=== PATIENT | male | born 1975 | race Caucasian/White ===

== ENCOUNTER 2025-05-31 08:55 | Emergency (ER) | payer BC ==
[2025-05-31 09:00] VITALS: BP 159/103; PULSE 112; RESP 18; TEMP 98
--- NOTE | 2025-05-31 09:20 | ED ---
Wound/Laceration HPI - General Chief Complaint: Wound/Laceration Stated Complaint: Right thumb laceration Time Seen by Provider: 05/31/25 09:20 Source: patient, family, RN notes reviewed Mode of arrival: ambulatory Limitations: no limitations - History of Present Illness Initial Comments: 50-year-old male presented to ER for evaluation of right thumb injury. Patient reports he was in his yard cutting brush with a chainsaw when the chainsaw accidentally kicked back and cut his right thumb. Patient reports that he distal amputation to right thumb. He does not know where distal end is. Patient denies any paresthesias or pain. Denies any limited range of motion. Tetanus status unknown. No other injuries or complaints. - Related Data Previous Rx's Medication Instructions Recorded Cephalexin [Keflex] 500 mg PO Q6HR #40 cap 05/31/25 Allergies Allergy/AdvReac Type Severity Reaction Status Date / Time iodine Allergy Rash/Hives Verified 05/31/25 09:00 Review of Systems ROS Statement: Those systems with pertinent positive or pertinent negative responses have been documented in the HPI. ROS Other: All systems not noted in ROS Statement are negative. Past Medical History Past Medical History: No Reported History History of Any Multi-Drug Resistant Organisms: None Reported Past Surgical History: No Surgical Hx Reported Past Psychological History: No Psychological Hx Reported Past Alcohol Use History: Occasional Past Drug Use History: None Reported General Exam Limitations: no limitations General appearance: alert, in no apparent distress Respiratory exam: Present: normal lung sounds bilaterally. Absent: respiratory distress, wheezes, rales, rhonchi, stridor Cardiovascular Exam: Present: regular rate, normal rhythm, normal heart sounds. Absent: systolic murmur, diastolic murmur, rubs, gallop, clicks Extremities exam: Present: normal capillary refill (2+ right radial pulse), other (Complete amputation of right thumb distal to PIP joint. No active bleeding.) Neurological exam: Present: alert, oriented X3, CN II-XII intact Skin exam: Present: warm, dry, intact, normal color. Absent: rash Course Vital Signs 05/31/25 08:58 Temperature 98.0 F Pulse Rate 112 H Respiratory 18 Rate Blood Pressure 159/103 O2 Sat by Pulse 97 Oximetry - Reevaluation(s) Reevaluation #1: 05/31/25 10:30 Case discussed with on-call orthopedics, Dr. Mandel. He spoke with hand surgery, Dr. Nelson. He advised to wrap thumb with nonadherent dressing and gauze. Outpatient follow-up with Dr. Nelson in office on Monday. Discharged on anti biotics Medical Decision Making - Medical Decision Making Was pt. sent in by a medical professional or institution (, [employer], COMPANY SECRETARY, urgent care, hospital, or detention...) When possible be specific @ -No Did you speak to anyone other than the patient for history (EMS, parent, family, police, friend...)? What history was obtained from this source @ -Significant other, bedside, aiding in HPI past medical history Did you review nursing and triage notes (agree or disagree)? Why? @ -I reviewed and agree with nursing and triage notes Were old charts reviewed (outside hosp., previous admission, EMS record, old EKG, old radiological studies, urgent care reports/EKG's, detention records)? Report findings @ -No old charts were reviewed Differential Diagnosis (chest pain, altered mental status, abdominal pain women, abdominal pain men, vaginal bleeding, weakness, fever, dyspnea, syncope, headache, dizziness, GI bleed, back pain, seizure, CVA, palpatations, mental health, musculoskeletal)? @ -Laceration, abrasion, contusion, avulsion, foreign body this list is not meant to be all-inclusive EKG interpreted by me (3pts min.). @ -None done X-rays interpreted by me (1pt min.). @ -Right hand x-ray interpreted me remarkable for amputation to distal end of right thumb. CT interpreted by me (1pt min.). @ -None done U/S interpreted by me (1pt. min.). @ -None done What testing was considered but not performed or refused? (CT, X-rays, U/S, labs)? Why? @ -None What meds were considered but not given or refused? Why? @ -None Did you discuss the management of the patient with other professionals (professionals i.e. [employer] Tong, COMPANY SECRETARY, lab, RT, psych nurse, social services technician, chief librarian branch or department, teacher, flight communications officer, employment evaluator/case manager)? Give summary @ -Case discussed with on-call orthopedics, Dr. Mandel who spoke with Dr. Nelson, hand marine habitat resource specialist. He advised nonadherent dressing and close follow-up outpatient on Monday with Dr. Nelson. Outpatient antibiotics. Was smoking cessation discussed for >3mins.? @ -No Was critical care preformed (if so, how long)? @ -No Were there social determinants of health that impacted care today? How? (Homelessness, low income, unemployed, alcoholism, drug addiction, transportation, low edu. Level, literacy, decrease access to med. care, fpc, rehab)? @ -No Was there de-escalation of care discussed even if they declined (Discuss DNR or withdrawal of care, Hospice)? DNR status @ -No What co-morbidities impacted this encounter? (DM, HTN, Smoking, COPD, CAD, Cancer, CVA, ARF, Chemo, Hep., AIDS, mental health diagnosis, sleep apnea, morbid obesity)? @ -None Was patient admitted / discharged? Hospital course, mention meds given and route, prescriptions, significant lab abnormalities, going to OR and other pertinent info. @ -Discharge. 50-year-old male presented the ER for evaluation of right thumb injury. Vital signs stable. Upon arrival patient tachycardic and mildly hyper tensive, 159/103. Vitals otherwise stable. This believed to be due to pain. Exam remarkable for distal amputation of right thumb distal to IP joint. No active bleeding. Bone exposed. Patient is neurovascularly intact. Right hand x-ray remarkable for amputation of the distal 50% of distal phalanx of the right thumb with small bone fragments and tiny radiopaque foreign body noted. Patient's tetanus updated and patient received 1 g IM Ancef. Findings discussed with on-call orthopedics, Dr. Mandel. He discussed case with hand marine habitat resource specialist, Dr. Nelson. He reports to dress wound with nonadherent dressing and gauze. Patient can be discharged home on oral antibiotics with close follow-up to Dr. Nelson on Monday. Patient educated on x-ray findings and orthopedic recommendations. Patient is agreeable. Patient provided with p.o. ibuprofen for pain control. Patient refused digital block. Wound irrigated with sterile water prior to dressing placed bacitracin and nonadherent dressing placed by RN. Patient discharged home on Keflex. Orthopedic contact information provided. Strict return parameters discussed. Patient discharged in stable condition. Patient verbally expressed understanding and agreement with care plan. Case discussed with ED attending, Dr. Castillo Undiagnosed new problem with uncertain prognosis? @ -No Drug Therapy requiring intensive monitoring for toxicity (Heparin, Nitro, Insulin, Cardizem)? @ -No Were any procedures done? @ -No Diagnosis/symptom? @ -Open fracture/distal thumb amputation Acute, or Chronic, or Acute on Chronic? @ -Acute Uncomplicated (without systemic symptoms) or Complicated (systemic symptoms)? @ -Uncomplicated Side effects of treatment? @ -No Exacerbation, Progression, or Severe Exacerbation? @ -No Poses a threat to life or bodily function? How? (Chest pain, [place], [place], pneumonia, PE, COPD, DKA, ARF, appy, cholecystitis, CVA, Diverticulitis, Homicidal, Suicidal, threat to staff... and all critical care pts) @ -Yes, open fractures can lead to systemic infections which can be life- threatening - Radiology Data Radiology results: report reviewed, image reviewed Disposition Clinical Impression: Open fracture, Amputation finger Disposition: HOME SELF-CARE Condition: Stable Instructions (If sedation given, give patient instructions): Finger Amputation (ED), Thumb Fracture (ED) Additional Instructions: Take Keflex as prescribed. Follow-up closely with hand surgery on Monday. You may take [id number] ibuprofen and Tylenol for pain control. Return to the ER for any new or worsening concerns Prescriptions: Cephalexin [Keflex] 500 mg PO Q6HR #40 cap Is patient prescribed a controlled substance at d/c from ED?: No Referrals: None,Stated [Primary Care Provider] - 1-2 days Nieves Nelson [Doctor of Osteopathic Medicine] - 1-2 days Time of Disposition: 10:44
[2025-05-31] MEDS: LIDOCAINE 1% INJ 10MG/ML (20 ML MDV) SQ ONE (09:43)
[2025-05-31] MEDS: IBUPROFEN 600 MG TAB PO STA (09:43)
[2025-05-31] MEDS: DIPH,PERTUS(ACELL)TETVAC-LF 0.5 ML VIAL IM ONE (09:44)
[2025-05-31] MEDS: ceFAZolin 1,000 MG VIAL (IM USE) IM STA (09:48)
--- NOTE | 2025-05-31 10:06 | XR ---
Right hand HISTORY: Amputation COMPARISON: None TECHNIQUE: 3 views of the left hand were obtained. FINDINGS: There is amputation of the distal 50% of the distal phalanx of the thumb.. There are multiple small b one fragments within the soft tissues at the amputation site within the mid distal phalanx. There are no radiopaque foreign is a tiny sliver-like radiopaque foreign body in the adjacent soft ti ssues in the radial aspect of the thumb at the level of the interphalangeal joint. The remaining osseous structures of the hand are intact. IMPRESSION: Amputation of the distal 50% of the distal phalanx of the right thumb with small bone fragments and a tiny radiopaque foreign body as described above. [facility], , 05/31/2025 10:04 AM
[2025-05-31] MEDS: BACITRACIN OINT 1 EACH PACKET TOPICAL ONE (11:06)
== END 2025-05-31 11:07 | disposition home or self-care (01) ==
LOC: EC 08:55
DX: S68.011A Complete traumatic metacarpophalangeal amputation of right thumb, initial encounter (principal); Z88.8 Allergy status to other drugs, medicaments and biological substances; Z23 Encounter for immunization; W29.3XXA Contact with powered garden and outdoor hand tools and machinery, initial encounter
CPT/HCPCS: 73130; 90715; 99283; 90471; 96372; J0690; J2003

== ENCOUNTER 2025-06-09 11:20 | Day surgery (SDC) | payer BC ==
[2025-06-09] MEDS ORDERED: LACTATED RINGERS 1,000 ML IV SCH (11:27)
[2025-06-09 11:54] VITALS: TEMP 98
[2025-06-09] MEDS: IV FLUID CONTINUATION 1,000 ML IV ONE (11:54)
[2025-06-09] MEDS: DEXAMETHASONE SOD PHOSPHATE 4 MG/ML 1 ML VIAL IV ONE (12:03)
[2025-06-09] MEDS: ONDANSETRON 4 MG/2 ML VIAL IVP ONE (12:03)
[2025-06-09] MEDS: BUPIVACAINE (PF) 0.25% 30 ML VIAL SQ ONE ×2 (12:51)
[2025-06-09] MEDS ORDERED: LIDOCAINE 1% INJ 10MG/ML (20 ML MDV) ONE (12:54)
[2025-06-09] MEDS ORDERED: PROPOFOL 10 MG/ML 20 ML VIAL IV ONE (12:54)
[2025-06-09] MEDS ORDERED: MIDAZOLAM 2 MG/2 ML VIAL ONE (12:54)
[2025-06-09] MEDS ORDERED: fentaNYL (PF) 50 MCG/ML 2 ML AMP ONE (12:54)
[2025-06-09] MEDS ORDERED: ePHEDrine 50 MG/ML 1 ML VIAL ONE (12:54)
[2025-06-09 15:11] VITALS: RESP 16
[2025-06-09] MEDS: HYDROmorphone 0.5 MG/0.5 ML SYRINGE IVP PRN (15:22)
[2025-06-09] MEDS: ENALAPRILAT 1.25 MG/ML 1 ML VIAL IVP STA (15:33)
[2025-06-09 16:32] VITALS: BP 136/86
[2025-06-09 16:35] VITALS: PULSE 81
--- NOTE | 2025-06-11 07:43 | P.OP ---
Date of Procedure: 06/09/25 Preoperative Diagnosis: Right thumb traumatic amputation just distal to the DIP joint Postoperative Diagnosis: Same Procedure(s) Performed: Irrigation and debridement of the right thumb Partial excision of distal phalanx bone fragment osteoplasty of the right thumb distal phalanx Formation of neurovascular pedicled flap for thumb wound coverage (Komal Flap) Anesthesia: JOHNNIE Surgeon: En Alvarez Estimated Blood Loss (ml): 5 Condition: stable Disposition: PACU Indications for Procedure: Right thumb traumatic amputation just distal to the DIP joint with inadequate soft tissue coverage and exposed bone Operative Findings: Transverse traumatic amputation at the level just distal to the DIP joint and just distal to the insertions of the FDP and EPL tendon insertions Description of Procedure: After appropriate informed consent was obtained the patient was brought to the operating room where he was placed supine on a stretcher and the arm placed on an armboard a well-padded tourniquet was applied to the right upper arm, general anesthesia was administered per the anesthesia team. The right upper extremity was prepped and draped in the normal standard fashion. A timeout was performed confirming the correct patient and operative site in this case the right thumb. The wound was initially assessed and debrided at the level of skin, subcutaneous tissue and bone, loose bone fragments of the distal phalanx were removed, the residual distal phalanx was coutnoured with a rasp to a smooth edge, and irrigated with normal saline, the plane of dissection just volar to the FDP tendon was identified and radial and ulnar longitudinal incisions were planned along this course staying just dorsal to the neurovascular bundles to the thumb. The volar soft tissue was carefully dissected off of the tendon sheath taking care to preserve the neurovascular bundles within the volar soft tissue creating a pedicled neurovascular flap containing the radial and ulnar digital arteries. This was taken down to the MP joint crease. The tissue was sufficiently mobilized and was pulled distally to approximate the skin to the dorsum of the thumb. The wounds were sutured with simple monocryl sutures and the skin was found to be sufficiently approximated without undue tension on the wound. the tourniquet was released and brisk capillary refill was noted throughout the hand. A digital block was performed with .25% marcaine wtihout epinephrine. s terile dressings and a thumb spica splint were applied. Patient tolerated the procedure well and was transferred to the PACU in stable condition.
== END 2025-06-09 16:45 | disposition home or self-care (01) ==
LOC: OR 11:20
PROVIDERS: ATTEND Orthopaedic Surgery
DX: S68.021A Partial traumatic metacarpophalangeal amputation of right thumb, initial encounter (principal); K21.9 Gastro-esophageal reflux disease without esophagitis; Z88.8 Allergy status to other drugs, medicaments and biological substances; W29.3XXA Contact with powered garden and outdoor hand tools and machinery, initial encounter; Y93.H9 Activity, other involving exterior property and land maintenance, building and construction
CPT/HCPCS: 26567; 15750; J2250; J1100; J0690; J2405; J2003; J3010; J2704; J1171; J0665